=== PATIENT | male | born 1950 | race Caucasian/White ===

== ENCOUNTER 2017-01-28 09:51 | Emergency (ER) | payer OTHER ==
[2017-01-28] MEDS: TOPICAL LIDOCAINE W/ EPI 5 ML TOP ONE (10:00)
--- NOTE | 2017-01-28 10:12 | Emergency Department Record ---
History of Present Illness - General Chief complaint: Extremity Problem Stated complaint: R LEG BLEEDING Time Seen by Provider: 01/28/17 09:54 Source: Patient, Family Mode of Arrival: Ambulatory Limitations: No limitations - History of Present Illness Initial comments: 66 yo male presents with bleeding from at side of his calf. No injury. It was noted after getting out of the shower. He has varicose veins. He applied pressure to control the symptoms. He is asymptomatic. No anticoagulants. MD Complaint: Other (Bleeding from a varicose vein) -: Minutes(s) Location: Right History of Same: No Radiation: Distal Improves with: Other (Pressure to bleeding) Associated Symptoms: Denies other symptoms - Related Data Home Medications Medication Instructions Recorded Confirmed Last Taken No Home Med [NO HOME MEDS] 01/28/17 01/28/17 Unknown Allergies Allergy/AdvReac Type Severity Reaction Status Date / Time No Known Drug Allergies Allergy Verified 01/28/17 10:00 Review of Systems Constitutional: Denies: Chills, Malaise, Weakness Eyes: Denies: Eye discharge ENT: Denies: Congestion, Throat pain Respiratory: Denies: Cough Cardiovascular: Denies: Chest pain, Palpitations, Syncope Endocrine: Denies: Fatigue Gastrointestinal: Denies: Abdominal pain, Diarrhea, Nausea, Vomiting Genitourinary: Denies: Dysuria, Frequency, Hematuria Musculoskeletal: Denies: Arthralgia, Back pain, Myalgia Skin: Denies: Bruising, Change in color, Rash Neurological: Denies: Headache Psychiatric: Denies: Anxiety Hematological/Lymphatic: Denies: Blood Clots, Easy bleeding, Easy bruising, Swollen glands Physical Exam - General General Appearance: Alert, Oriented x3, Cooperative Limitations: No limitations - Head Head exam: Normal inspection - Eye Eye exam: Normal appearance - ENT ENT exam: Normal exam Ear exam: Normal external inspection Nasal Exam: Normal inspection Mouth exam: Normal external inspection - Neck Neck exam: Normal inspection - Respiratory Respiratory exam: Normal lung sounds bilaterally. negative: Respiratory distress - Cardiovascular Cardiovascular Exam: Regular rate, Normal rhythm, Normal heart sounds - Rectal Rectal exam: Deferred - exam: Deferred - Extremities Extremities exam: negative: Normal inspection (diffuse bilateral lower leg varicose veins) Image of Full Body: 1 - pinpoint area of minimal bleeding - Neurological Neurological exam: Alert, Oriented X3 - Psychiatric Psychiatric exam: negative: Agitated, Anxious - Skin Skin exam: Dry, Intact, Normal color, Warm Course - Reevaluation(s) Reevaluation #1: The area was exposed [place] area of bleeding Gemfoam with TLE place on the bleeding area 01/28/17 10:13 Reevaluation #2: No bleeding through the dressing at this time 01/28/17 10:36 Reevaluation #3: The GelFoam stopped the bleeding When gently removed it returned so it was replaced with good results This will be left on 48 hours with instructions to return 01/28/17 11:30 Disposition Disposition: Discharge Clinical Impression: Bleeding from varicose vein Qualifiers: Laterality: right Qualified Code(s): I83.891 - Varicose veins of right lower extremities with other complications Disposition: Home, Self-Care Condition: (1) Good Instructions: Stasis Dermatitis (ED) Additional Instructions: Return if you have bleeding, pain or swelling Keep your leg elevated today avoiding walking Leave the dressing on 24 hours then remove You may use the tony wrap for support of the area as you heal for the next week Referrals: MARCIA DUQUE D.O. [DOCTOR OF OSTEOPATH] - [facility] [Provider Group] Forms: Patient Portal Access Time of Disposition: 11:31 Quality - Quality Measures Quality Measures: N/A - Blood Pressure Screening View Details: Yes Blood Pressure Classification: Pre-Hypertensive BP Reading Systolic Measurement: 123 Diastolic Measurement: 69 Screening for High Blood Pressure: < Normal BP, F/U Not Required > [G8783] Normal BP Follow-up Interventions: No follow-up required
== END 2017-01-28 12:30 | disposition home or self-care (01) ==
LOC: ER 09:51
DX: I83.891 Varicose veins of right lower extremity with other complications (principal)
CPT/HCPCS: 99282